=== PATIENT | male | born 1965 | race Caucasian/White ===

== ENCOUNTER 2017-06-10 10:48 | Inpatient (IN) | payer OTHER ==
[~2017-06-10] VITALS: Ht 170.2 cm; Wt 84.2 kg
[2017-06-10] MEDS ORDERED: SOD CHLORIDE 0.9% 1,000 ML IV ONE ×2 (12:30→17:00)
[2017-06-10 12:41] LABS: ABNORMAL IP MESSAGE 1; HEMATOCRIT 22.1 % (42.0-52.0); HEMOGLOBIN 7.1 g/dl (14.0-18.0); MEAN CORPUSCULAR HGB CONC 32.1 g/dl (32.0-37.0); MEAN CORPUSCULAR VOLUME 71.5 fl (82.0-101.0); NUCLEATED RED BLOOD CELLS% 0.1 /100WBC (0.0-0.0); POSITIVE DIFF @See below; RED BLOOD COUNT 3.09 10^6/ul (4.70-6.10); RED CELL DISTRIBUTION WIDTH 19.4 % (11.5-14.5); WHITE BLOOD COUNT 34.9 10^3/ul (4.8-10.8)
[2017-06-10 12:48] LABS: INR 1.49; PROTIME 18.1 Sec (12.2-14.2); PT RATIO 1.4
[2017-06-10 12:52] LABS: PARTIAL THROMBOPLASTIN TIME 42.4 Sec (25.0-35.0)
[2017-06-10] MEDS ORDERED: ALBU2.5V3 NEB (12:52)
[2017-06-10] MEDS ORDERED: ARGI1POW19 PO (12:54)
[2017-06-10] MEDS ORDERED: LORA-441 PO (12:56)
[2017-06-10] MEDS ORDERED: DEXT15DR2 BOTH EYES (12:56)
[2017-06-10] MEDS ORDERED: CEFEPIME 2GM/50 ML (PMX) 50 ML IVPB ONE (13:00)
[2017-06-10] MEDS ORDERED: WHEY227P PO (13:02)
[2017-06-10] MEDS ORDERED: DOCU-144 PO (13:03)
[2017-06-10] MEDS ORDERED: SUCR1TAB56 PO (13:03)
[2017-06-10] MEDS ORDERED: DIVA500T7 PO (13:04)
[2017-06-10] MEDS ORDERED: POLY17PO6 PO (13:06)
[2017-06-10] MEDS ORDERED: IPRA3AMP INHALATION (13:06)
[2017-06-10] MEDS ORDERED: MULT-105 PO (13:07)
[2017-06-10] MEDS ORDERED: GABA-526 PO (13:08)
[2017-06-10] MEDS ORDERED: HYDR-906 PO ×2 (13:09→13:10)
[2017-06-10] MEDS ORDERED: PANT40TA3 PO (13:11)
[2017-06-10] MEDS ORDERED: UDROBDM PO (13:12)
[2017-06-10] MEDS ORDERED: SIME80TA53 PO (13:13)
[2017-06-10] MEDS ORDERED: ACET325T33 PO (13:14)
[2017-06-10] MEDS ORDERED: ASCO-110 PO (13:15)
[2017-06-10] MEDS ORDERED: BUPR-187 PO (13:15)
--- NOTE | 2017-06-10 13:15 | RADRPT ---
PROCEDURE: XR Chest. CLINICAL INDICATION: Chest pain, shortness of breath TECHNIQUE: Single frontal view of the chest was obtained COMPARISON: None FINDINGS: A right subclavian pacemaker is present. The heart is enlarged. There is fullness in the superior mediastinum, likely exaggerated by the portable nature of the film . The study is hypoventilatory which compresses the lung parenchyma. Mild pulmonary vascular congesti on is not excluded. There is patchy left basilar atelectasis with a small left pleural effusion. The right pleural space is clear. The bones and soft tissue show no acute change. IMPRESSION: 1. Cardiomegaly. 2. Fullness in the superior mediastinum, likely exaggerated by the portable nature of the film. 3. Hypoventilatory study which compresses the lung parenchyma. Mild pulmonary vascular congestion is not excluded. 4. Patchy left basilar atelectasis with a small left pleural effusion. RPTAT:AAJJ Physician Priya Date Time Electronically viewed and signed by Physician Priya on 06/10/2017 13:14 RAFAL/
[2017-06-10 13:27] LABS: ALANINE AMINOTRANSFERASE 29 IU/L (13-69); ALBUMIN 2.1 g/dl (3.3-4.9); ALKALINE PHOSPHATASE 122 IU/L (42-121); ANION GAP 12 (8-16); ASPARTATE AMINO TRANSFERASE 49 IU/L (15-46); BILIRUBIN,INDIRECT 0.4 mg/dl (0-1.1); BILIRUBIN,TOTAL 0.4 mg/dl (0.2-1.3); BLOOD UREA NITROGEN 38 mg/dl (7-20); CALCIUM 6.8 mg/dl (8.4-10.2); CARBON DIOXIDE 27 mmol/L (21-31); CHLORIDE 86 mmol/L (97-110); CREATININE 0.99 mg/dl (0.61-1.24); GLUCOSE 102 mg/dl (70-220); SODIUM 122 mmol/L (135-144); TOTAL PROTEIN 6.3 g/dl (6.1-8.1)
[2017-06-10 13:30] LABS: POTASSIUM 2.8 mmol/L (3.5-5.1)
[2017-06-10 13:39] LABS: TROPONIN-I < 0.012 ng/ml (0.00-0.12)
[2017-06-10 13:40] LABS: LYMPHOCYTES # 1.4 10^3/ul (0.8-2.9); MONOCYTE # 1.7 10^3/ul (0.3-0.9); MONOCYTES % (M) 5 % (0-11)
[2017-06-10 13:41] LABS: PLATELET COUNT 270 10^3/UL (140-415)
[2017-06-10] MEDS ORDERED: POTASSIUM CHLORIDE 250 ML IVPB ONE (14:30)
--- NOTE | 2017-06-10 14:32 | ERA ---
ER Documentation Chief Complaint Date/Time DATE: 06/10/17 TIME: 14:28 Chief Complaint ABDOMEN MORE DISTENDED AND FIRM WITH INCREASED ALOC PER STAFF. NO TRAUMA HPI Patient is a 51-year-old male with quadriplegia who was sent to the ER from a long term due to low blood pressure and generalized weakness for 2 days. History is limited due to poor knowledge at the long term, including from the long term physician and patient's nurse. The patient states that he feels well and is unable to provide history. According to the long term physician, the patient has had recurrent urinary tract infections, and may have a chronic volvulus. Patient has been admitted multiple times to [facility] according to . ROS All systems reviewed and are negative except as per history of present illness. Medications Home Meds Reported Medications Bupropion Hcl* (Wellbutrin SR*) 100 Mg Tablet.sa, 100 MG PO DAILY, TAB.SA 06/10/17 Ascorbate Calcium (Vitamin C) 500 Mg Tablet, 500 MG PO BID, TAB 06/10/17 Acetaminophen* (Tylenol*) 325 Mg Tablet, 650 MG PO Q6H Y for PAIN 1-4/10, TAB 06/10/17 Simethicone (GAS RELIEF) 80 Mg Tab.chew, 80 MG PO QID, TAB.CHEW 06/10/17 Guaifenesin-Dextromethorphan* (Robitussin* DM) 100MG/10MG/5ML Syrup, 10 ML PO Q4H Y for COUGH, ML 06/10/17 Pantoprazole* (Protonix*) 40 Mg Tablet.dr, 40 MG PO QAM, TAB 06/10/17 Hydrocodone/Acetaminophen ([place] 5-325 Tablet) 1 Each Tablet, 1 EACH PO Q8H Y for PAIN 5-10/10, TAB 06/10/17 Hydrocodone/Acetaminophen ([place] 5-325 Tablet) 1 Each Tablet, 1 EACH PO, TAB TAKE 1/2HR PRIOR TO WOUND TX. 06/10/17 Gabapentin* (Gabapentin*) 600 Mg Tablet, 600 MG PO Q8H, #90 TAB 06/10/17 Multivitamin with Minerals (Multivitamins with Minerals) 1 Each Tablet, 1 EACH PO DAILY, TAB 06/10/17 Polyethylene Glycol* (Miralax*) 17 Gm Powd.pack, 17 GM PO DAILY, #30 PACKET 06/10/17 Ipratropium-Albuterol (Ipratropium-Albuterol) 0.5-3 Mg/3 Ml Ampul.neb, 3 ML INHALATION Q6 Y for SHORTNESS OF BREATH, #30 VIAL 06/10/17 Divalproex Sodium* (Depakote*) 500 Mg Tablet.dr, 500 MG PO BID, #60 TAB 06/10/17 Docusate Sodium* (Colace*) 100 Mg Capsule, 100 MG PO BID, #60 CAP 06/10/17 Sucralfate* (Carafate*) 1 Gm Tab, 1 GM PO Q6, TAB 06/10/17 Whey Protein Isolate (Beneprotein) 227 Gm Powder, 0 PO QID TAKE 1 SCOOP QID,MIX WITH 4 OZ BEVERAGE OR SOFT FOOD 06/10/17 Lorazepam* (Ativan*) 0.5 Mg Tablet, 0.5 MG PO Q8 Y for ANXIETY, #60 TAB 06/10/17 Dextran/Hypromellose/Glycerin (Artificial Tears Drops) 15 Ml Drops, 1 DROP BOTH EYES Q3H Y for DRY EYES, EA 06/10/17 Arginine/Ascorbate Sod/Raya AC (Arginaid Powder) 1 Each Powd.pack, 1 EACH PO BID 06/10/17 Albuterol Sulfate* (Albuterol Sulfate* Neb) 0.083%-3 Ml Neb, 2.5 MG NEB Q6H Y for WHEEZING AND SOB, #30 VIAL 06/10/17 Allergies Allergies: Coded Allergies: No Known Allergy (Unverified , 06/10/17) PMhx/Soc Past medical history: Quadriplegia due to polio, CHF, pacemaker, suprapubic catheter, possible chronic volvulus, depression Past surgical history: Unknown Social history: Lives in long term Hx Miscellaneous Medical Probl: Yes (ANEMIA , HTN. BIPOLAR . PRESSURE ULCERS. ) Smoking Status: Unknown if ever smoked FmHx Cannot obtain Physical Exam Vitals Vital Signs Date Time Temp Pulse Resp B/P Pulse Ox O2 Delivery O2 Flow Rate FiO2 06/10/17 15:32 98.6 81 20 99/52 Nasal Cannula 4.0 06/10/17 13:42 88 20 134/59 Nasal Cannula 4.0 06/10/17 13:17 Nasal Cannula 3 06/10/17 12:10 98.5 88 22 78/54 99 Physical Exam Const: Awake, lethargic, poorly communicative Head: Atraumatic Eyes: Normal Conjunctiva, No pallor, no icterus ENT: Normal External Ears, Nose and Mouth. Dry mucous membranes Neck: Full range of motion..~ No meningismus. No JVD Resp: Clear to auscultation bilaterally, Diminished breath sounds at left base, no rales, no wheezes Cardio: Regular rate and rhythm, no murmurs Abd: Firm, severely distended, no guarding or rebound Skin: No petechiae or rashes Back: No midline or flank tenderness. Stage IV decubitus ulcer over sacrum without surrounding erythema, foul smell, or discharge. Ext: No cyanosis, 1+ pitting edema bilateral shins Neur: Awake and alert, Contractures of 4 extremities Psych: Cannot assess due to medical condition Result Diagram: 06/10/17 1150 06/10/17 1150 Results 24 hrs Laboratory Tests Test 06/10/17 11:50 06/10/17 14:58 White Blood Count 34.910^3/ul Red Blood Count 3.0910^6/ul Hemoglobin 7.1g/dl Hematocrit 22.1% Mean Corpuscular Volume 71.5fl Mean Corpuscular Hemoglobin 23.0pg Mean Corpuscular Hemoglobin Concent 32.1g/dl Red Cell Distribution Width 19.4% Platelet Count 87158^3/UL Mean Platelet Volume 9.0fl Neutrophils % % Segmented Neutrophils % (Manual) 82% Band Neutrophils % (Manual) 9% Lymphocytes % % Lymphocytes % (Manual) 4% Monocytes % % Monocytes % (Manual) 5% Eosinophils % % Basophils % % Nucleated Red Blood Cells % 0.1/100WBC Neutrophils # (Manual) 29.710^3/ul Band Neutrophils # 3.110^3/ul Absolute Lymphocytes (Manual) 1.310^3/ul Lymphocytes # 1.410^3/ul Monocytes # 1.710^3/ul Absolute Monocytes (Manual) 1.710^3/ul Eosinophils # 10^3/ul Basophils # 10^3/ul Nucleated Red Blood Cells # 10^3/ul Prothrombin Time 18.1Sec Prothrombin Time Ratio 1.4 INR International Normalized Ratio 1.49 Activated Partial Thromboplast Time 42.4Sec Sodium Level 122mmol/L Potassium Level 2.8mmol/L Chloride Level 86mmol/L Carbon Dioxide Level 27mmol/L Anion Gap 12 Blood Urea Nitrogen 38mg/dl Creatinine 0.99mg/dl Glucose Level 102mg/dl Lactic Acid Level 2.6mmol/L Calcium Level 6.8mg/dl Total Bilirubin 0.4mg/dl Direct Bilirubin 0.00mg/dl Indirect Bilirubin 0.4mg/dl Aspartate Amino Transf (AST/SGOT) 49IU/L Alanine Aminotransferase (ALT/SGPT) 29IU/L Alkaline Phosphatase 122IU/L Ammonia 39umol/l Troponin I < 0.012ng/ml Total Protein 6.3g/dl Albumin 2.1g/dl Globulin 4.20g/dl Albumin/Globulin Ratio 0.50 Urine Color YELLOW Urine Clarity TURBID Urine pH 5.0 Urine Specific [place] 1.015 Urine Ketones NEGATIVEmg/dL Urine Nitrite NEGATIVEmg/dL Urine Bilirubin 1+mg/dL Urine Urobilinogen 2+mg/dL Urine Leukocyte Esterase 2+Rdaha/ul Urine Microscopic RBC 67/HPF Urine Microscopic WBC > 182/HPF Urine Bacteria MANY/HPF Urine Mucus MODERATE/HPF Urine Hemoglobin 2+mg/dL Urine Glucose NEGATIVEmg/dL Urine Total Protein 2+mg/dl Current Medications Medications (Trade) Dose Ordered Sig/Vern Route PRN Reason Start Time Stop Time Status Last Admin Dose Admin Sodium Chloride 1,000 ml @ 1,000 mls/hr Q1H ONCE IV 06/10/17 12:30 06/10/17 13:29 DC 06/10/17 13:09 Cefepime HCl 50 ml @ 100 mls/hr ONCE ONCE IVPB 06/10/17 13:00 06/10/17 13:29 DC 06/10/17 13:00 Potassium Chloride (KCl 40 MEQ/250 ML NS) 250 ml @ 62.5 mls/hr ONCE ONCE IVPB 06/10/17 14:30 06/10/17 18:29 06/10/17 16:15 Procedures/MDM EKG read by me: Time 1059, rate 92 Rhythm: Normal sinus [place]: Normal Intervals: Incomplete right bundle branch block ST-T waves: no ischemic changes Ectopy: No Q-waves: No Impression: No evidence of ischemia or arrhythmia MDM: Patient is a 51-year-old male sent from long term for low blood pressure and generalized weakness for 2 days. The patient has history of recurrent UTIs associated with an indwelling suprapubic catheter. In the ER, he is found to have impressive leukocytosis, elevated lactic acid, and evidence of UTI. He was hypotensive, but his blood pressure normalized with IV fluids. He also was found to have severe hyponatremia and hypokalemia. He was given IV potassium repletion. There is no evidence of focal neurologic deficit. His ammonia was mildly elevated. He had a distended abdomen, which the long term reported is chronic, but they did not know the cause of his abdominal distention. A CT scan demonstrated possible rectal stricture. He will need a nonemergent surgical consult for possible colonic obstruction versus ileus. He was also found to have a stage IV decubitus ulcer with signs of possible osteomyelitis on CT scan. Septic workup was initiated, and the patient was given IV fluids and broad-spectrum antibiotics. The patient was initially given judicious IV fluids due to concern for underlying CHF and mild hypoxemia. He tolerated initial bolus well, and will be given additional fluids at a slow rate to avoid volume overload. This was a deviation from sepsis protocol based upon my assessment of risks and benefits. Cultures were sent. He was found to be anemic. There is no report of dark stools, and no accessible baseline hemoglobin. A type and screen was sent. The patient will be admitted to a monitored bed by Dr. Hughes. Critical Care Time: 35 minutes Treatments/Evaluations: Close monitoring and treatment of unstable vital signs, cardiorespiratory, and neurologic status, while maintaining tight balance of fluid, respiratory, and cardiac interventions. This time includes discussing the case with the patient and the patient's family. This time does not include all procedures stated elsewhere in this record. This time also includes reviewing old records, labs and radiological studies. This time includes examining and re-examining the patient. Additionally, this time also includes arranging care with admitting and consulting physicians. Significant time was spent speaking with 2 staff members at the long term and the physician at the long term due to poor availability of patient's history and medical conditions. Departure Diagnosis: Primary Impression: Hypotension Qualified Code: I95.9 - Hypotension, unspecified hypotension type Additional Impressions: Sepsis Qualified Code: A41.9 - Sepsis, due to unspecified organism Urinary tract infection Qualified Code: T83.511A - Urinary tract infection associated with indwelling urethral catheter, initial encounter Chronic osteomyelitis of sacrum Hyponatremia Hypokalemia Anemia Qualified Code: D64.9 - Anemia, unspecified type Rectal stricture Quadriplegia Condition: Serious TEQUILA SINGH MD Jun 10, 2017 14:32
[2017-06-10 15:27] LABS: ADD UMIC YES; UR ASCORBIC ACID 40 mg/dL (NEGATIVE); UR BACTERIA MANY /HPF (NONE SEEN); UR BILIRUBIN (Dip) 1+ mg/dL (NEGATIVE); UR BLOOD (Dip) 2+ mg/dL (NEGATIVE); UR CLARITY TURBID (CLEAR); UR COLOR YELLOW (YELLOW); UR GLUCOSE (Dip) NEGATIVE (NEGATIVE); UR KETONES (Dip) NEGATIVE (NEGATIVE); UR LEUKOCYTE ESTERASE (Dip) 2+ Leu/ul (NEGATIVE); UR MUCUS MODERATE /HPF (NONE SEEN); UR NITRITE (Dip) NEGATIVE (NEGATIVE); UR RBC 67 /HPF (0-5); UR SPECIFIC GRAVITY (Dip) 1.015 (1.003-1.030); UR TOTAL PROTEIN (Dip) 2+ mg/dl (NEGATIVE); UR UROBILINOGEN (Dip) 2+ mg/dL (NEGATIVE); UR WBC CLUMPS RARE /HPF (NONE SEEN)
--- NOTE | 2017-06-10 16:27 | RADRPT ---
PROCEDURE: CT abdomen and pelvis without contrast. CLINICAL INDICATION: Abdominal distension and pain TECHNIQUE: CT scan of the abdomen and pelvis without contrast was performed. Sagittal and coronal reformatted images were obtained from the axial source images. One or more of the following dose re duction techniques were used: Automated exposure control, adjustment of the mA and/or kV according t o patient size, use of iterative reconstruction technique. CTDI = 20.58 mGy; DLP = 1232.01 mGy-cm COMPARISON: None available. FINDINGS: Visualized lower thorax: Dependent subsegmental atelectasis greater on the left is present. Visual ized heart is mildly enlarged with a cardiac pacemaker noted. There is no evidence for pleural effu jacqui. Liver, gallbladder, pancreas and spleen: The liver is normal and size, contour and attenuation. Th ere is no evidence for a liver mass or ductal dilatation. The gallbladder is contracted around calc ified gallstones. No common bile duct abnormality is demonstrated. The pancreas is unremarkable. The spleen is top normal in size. Adrenal glands and genitourinary system: The adrenal glands are normal bilaterally. Nonspecific str anding of the fat surrounding the right kidney is identified without evidence of calculus or hydrone phrosis. Within the left kidney there are 4 calculi ranging in size from 1 mm up to 4 mm. A tiny h yperdense cyst within the left renal cortex is present likely proteinaceous or hemorrhagic material. There is no evidence of hydronephrosis. The ureters are unremarkable. A suprapubic catheter is in the anterior aspect of the urinary bladder and to the left of midline, the urinary bladder contract ed and difficult to evaluate. The prostate gland is not visualized, possibly atrophic. The visuali zed scrotum shows small hydroceles. Gastrointestinal system: The most striking finding is marked gaseous distension of the colon with a severe amount of fecal debris in the sigmoid segment and rectum, the diameter of the sigmoid colon e stimated at 15 cm. The possibility of a stricture in the rectum is difficult to exclude. The stoma ch is collapsed and there is no evidence of small bowel obstruction or ileus. No perienteric inflam mation is seen. The appendix is normal Peritoneum, retroperitoneum, lymph nodes and vessels: The abdominal aorta is normal in caliber. The re is mild aortic atherosclerotic calcification. The inferior vena cava is unremarkable. There is no evidence for adenopathy or mass. There is no ascites. No pneumoperitoneum is present Osseous structures and musculoskeletal findings: Severe atrophy of the pelvic and paraspinal muscle s is most consistent with a longstanding paralysis. There are decubitus ulcer is overlying the post erior right hip with chronic-appearing bony destruction of the right proximal femur likely chronic o steomyelitis with a right hip joint effusion. Generalized osteoporosis is present. There is severe narrowing of the left hip joint and dystrophic calcifications anterior to the left femoral head. RPTAT:HJJR IMPRESSION: 1. Severe distal colonic and rectal distension with gas and distal fecal debris unable to exclude a a rectal stricture. A severe a colonic ileus is a possibility given the musculoskeletal changes of p resumably a longstanding paralysis. 2. Urinary bladder is decompressed by suprapubic catheter is to the left of midline, displaced by t he markedly distended distal colon. 3. No evidence of appendicitis, bowel obstruction or ileus. 4. Incidental cholelithiasis and the contracted gallbladder. 5. Nonobstructing left intrarenal calculi and a left renal cortex proteinaceous or hemorrhagic cyst are additional incidental findings requiring no further follow-up. 6. Mild atherosclerotic calcification of the abdominal aorta. 7. Severe atrophy of the pelvic and visualized 5 musculature with probable chronic osteomyelitis of the right proximal femur and hip related to decubitus ulcer. Physician Gonzalo Date Time Electronically viewed and signed by Physician Gonzalo on 06/10/2017 16:27 JR/
[2017-06-10] MEDS ORDERED: PANTOPRAZOLE 40 MG INJ IV ONE (17:00)
[2017-06-10] MEDS ORDERED: NORepinephrine 8MG/250 ML (PMX 0 ML ONE (18:31)
--- NOTE | 2017-06-10 18:46 | EN ---
Date/Time of Note Date/Time of Note DATE: 06/10/17 TIME: 18:44 ER Progress Note I was notified by the charge nurse that this patient was hypotensive. I did not initially evaluate this patient however I was told this patient has had a blood pressure with a systolic no greater than 65. They try fluid boluses 2 L of IV fluid with no resolution of his hypotension. When I evaluated this patient he had a blood pressure of 63/42. He was not tachycardic. The patient had an extreme abdominal distention and reviewing his lab andUrinalysis this patient does have UTI with sepsis and refractory hypotension to fluids. I did place a central line in the right internal jugular vein. Please see central line. The patient will be placed in the intensive care unit and was started on Levophed. Central Line Placement by me: Patient consented, sterilely draped, full prep, gown, glove, mask, time out performed. Anesthesia: 1% lidocaine locally Location: Right internal jugular vein Device: Multiple lumen Technique: Seldinger technique. Secured with suture. Results: Venous return from all ports with easy saline flush. No complications. Guide wire retrieved and disposed of. [ED Ultrasound: Central line placed by me using concurrent ultrasound guidance. Real time image archived in the medical record confirms vascular anatomy. [Chest X-ray 1V Interpreted by me: Central line in SVC, Normal soft tissue, No evidence of pneumothorax.] JOSEPH SOSA DO Jun 10, 2017 18:46
--- NOTE | 2017-06-10 18:57 | RADRPT ---
PROCEDURE: XR Chest. CLINICAL INDICATION: Respiratory distress. TECHNIQUE: AP view of the chest was performed. COMPARISON: June 10, 2017 FINDINGS: There is a new, right central venous catheter with the tip in the superior vena cava. This line is in good positioning and ready for use. There is no pneumothorax. The heart size is stable. There is a stable right subclavian dual-chambe r pacer. No pleural effusion or findings of acute fluid overload. The osseous structures are intac t. IMPRESSION: 1. Right central venous catheter in good positioning and ready for use. No pneumothorax. No findi ngs of acute fluid overload. Overall, no significant interval change. RPTAT: QQ. .Jaci Rodriguez MD, MD Date Time Electronically viewed and signed by .Jaci Rodriguez MD, on 06/10/2017 18:57 .F/
[2017-06-10] MEDS ORDERED: ACETAMINOPHEN 325 MG TAB PO ONE (20:30)
[2017-06-10] MEDS ORDERED: NORepinephrine 8MG/250 ML (PMX 250 ML IV SCH (21:00)
[2017-06-10 22:13] VITALS: TEMP 100.1
[2017-06-10 22:45] VITALS: BP 169/142; PULSE 118; RESP 29
[2017-06-10 23:00] VITALS: BP 108/70; PULSE 112; RESP 28
[2017-06-10 23:15] VITALS: BP 99/58; PULSE 109; RESP 31
[2017-06-10 23:30] VITALS: BP 98/56; PULSE 111; RESP 29
[2017-06-10 23:45] VITALS: BP 102/59; PULSE 111; RESP 30
[2017-06-10 23:52] LABS: AADO2 Arterial 6.9 mmHg (7.0-24.0); Allen Test ACCEPTAB; Arterial Base Excess -0.9 mmol/L (-3.0-3); Arterial COHb 0.5 % (0.0-3.0); Arterial Fraction of Oxyhgb 97.5 % (93.0-99.0); Arterial HCO3 24.6 mmol/L (22.0-26.0); Arterial MetHb 0.4 % (0.0-1.5); MODE NASAL CANNULA
[2017-06-11] VITALS (91 sets, daily range): BP systolic 74–133; BP diastolic 42–104; PULSE 83–110; RESP 13–37
[2017-06-11] MEDS ORDERED: VANCOMYCIN IV PER PHARMACY XX SCH (00:30)
[2017-06-11] MEDS ORDERED: SOD CHLORIDE 0.9% 1,000 ML IV SCH ×2 (00:30→04:30)
[2017-06-11 00:57] LABS: ABNORMAL IP MESSAGE 1; BASOPHILS % 0.1 % (0.0-2.0); HEMATOCRIT 24.1 % (42.0-52.0); HEMOGLOBIN 7.5 g/dl (14.0-18.0); LYMPHOCYTES # 1.3 10^3/ul (0.8-2.9); LYMPHOCYTES % 3.9 % (15.0-51.0); MEAN CORPUSCULAR HEMOGLOBIN 22.2 pg (29.0-33.0); MEAN CORPUSCULAR HGB CONC 31.1 g/dl (32.0-37.0); MEAN CORPUSCULAR VOLUME 71.3 fl (82.0-101.0); MEAN PLATELET VOLUME 9.1 fl (7.4-10.4); MONOCYTE # 1.5 10^3/ul (0.3-0.9); MONOCYTES % 4.4 % (0.0-11.0); NEUTROPHILS % 88.5 % (39.0-77.0); NUCLEATED RED BLOOD CELLS% 0.1 /100WBC (0.0-0.0); PLATELET COUNT 288 10^3/UL (140-415); POSITIVE DIFF @See below; RED BLOOD COUNT 3.38 10^6/ul (4.70-6.10); RED CELL DISTRIBUTION WIDTH 20.1 % (11.5-14.5); WHITE BLOOD COUNT 34.7 10^3/ul (4.8-10.8)
[2017-06-11 01:23] LABS: ALBUMIN 2.1 g/dl (3.3-4.9); ALBUMIN/GLOBULIN RATIO 0.48; BILIRUBIN,INDIRECT 0.2 mg/dl (0-1.1); BILIRUBIN,TOTAL 0.2 mg/dl (0.2-1.3); CREATININE 0.62 mg/dl (0.61-1.24); MAGNESIUM 1.5 mg/dl (1.7-2.5); PHOSPHORUS 3.9 mg/dl (2.5-4.9); TOTAL PROTEIN 6.4 g/dl (6.1-8.1)
[2017-06-11] MEDS ORDERED: VANCOMYCIN 2 GM in SOD CHLORIDE 0.9% 500 ML IVPB SCH (02:00)
[2017-06-11 02:44] LABS: POTASSIUM 2.7 mmol/L (3.5-5.1)
[2017-06-11] MEDS ORDERED: POTASSIUM CHLORIDE 250 ML IVPB ONE (03:30)
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
[2017-06-11 05:30] LABS: ABNORMAL IP MESSAGE 1; BASOPHILS % 0.1 % (0.0-2.0); EOSINOPHILS % 0.1 % (0.0-7.0); HEMATOCRIT 23.2 % (42.0-52.0); HEMOGLOBIN 7.1 g/dl (14.0-18.0); LYMPHOCYTES # 1.7 10^3/ul (0.8-2.9); LYMPHOCYTES % 5.1 % (15.0-51.0); MEAN CORPUSCULAR HGB CONC 30.6 g/dl (32.0-37.0); MEAN PLATELET VOLUME 9.3 fl (7.4-10.4); MONOCYTE # 1.6 10^3/ul (0.3-0.9); MONOCYTES % 4.8 % (0.0-11.0); NEUTROPHILS % 86.7 % (39.0-77.0); NUCLEATED RED BLOOD CELLS% 0.1 /100WBC (0.0-0.0); PLATELET COUNT 296 10^3/UL (140-415); POSITIVE DIFF @See below; RED BLOOD COUNT 3.22 10^6/ul (4.70-6.10); RED CELL DISTRIBUTION WIDTH 20.1 % (11.5-14.5); WHITE BLOOD COUNT 33.1 10^3/ul (4.8-10.8)
[2017-06-11] MEDS ORDERED: PENDING SANTYL ORDER FOR WOUND CARE XX PRN (06:00)
[2017-06-11 06:16] LABS: IRON < 10 ug/dl (35-150)
[2017-06-11 06:24] LABS: TOTAL IRON BINDING CAPACITY 166 ug/dl (241-421)
[2017-06-11] MEDS: PIPER-TAZO 3.375 GM IV (PMX) 100 ML IVPB SCH ×3 (06:55→18:06)
[2017-06-11] MEDS ORDERED: POTASSIUM CHLORIDE 50 ML IVPB SCH (07:30)
[2017-06-11 12:10] LABS: ALBUMIN/GLOBULIN RATIO 0.48; BILIRUBIN,DIRECT 0.3 mg/dl (0.00-0.20); BILIRUBIN,INDIRECT 0.6 mg/dl (0-1.1); BILIRUBIN,TOTAL 0.9 mg/dl (0.2-1.3); CALCIUM 6.8 mg/dl (8.4-10.2); CREATININE 0.48 mg/dl (0.61-1.24); TOTAL PROTEIN 6.1 g/dl (6.1-8.1)
[2017-06-11] MEDS ORDERED: MAGNESIUM SULFATE 2 GM/50 ML 50 ML IVPB ONE (13:30)
[2017-06-11] MEDS: POTASSIUM CHLORIDE 40 MEQ in SOD CHLORIDE 0.9% 1,000 ML IV SCH ×2 (14:55→23:09)
[2017-06-11] MEDS: VANCOMYCIN 1.25 GM in SOD CHLORIDE 0.9% 250 ML IVPB SCH (14:55)
[2017-06-11] MEDS ORDERED: CALCIUM GLUCONATE 10% 2 GM in SOD CHLORIDE 0.9% 100 ML IVPB ONE (15:00)
[2017-06-11 21:28] LABS: ALBUMIN/GLOBULIN RATIO 0.48; BILIRUBIN,DIRECT 0.7 mg/dl (0.00-0.20); BILIRUBIN,INDIRECT 0.6 mg/dl (0-1.1); BILIRUBIN,TOTAL 1.3 mg/dl (0.2-1.3); CALCIUM 7.4 mg/dl (8.4-10.2); CREATININE 0.45 mg/dl (0.61-1.24); MAGNESIUM 1.9 mg/dl (1.7-2.5); PHOSPHORUS 2.1 mg/dl (2.5-4.9); TOTAL PROTEIN 6.1 g/dl (6.1-8.1)
[2017-06-11 21:31] LABS: POTASSIUM 2.6 mmol/L (3.5-5.1)
[2017-06-11] MEDS: POTASSIUM CHLORIDE 50 ML IVPB SCH (23:09)
[2017-06-12] VITALS (95 sets, daily range): BP systolic 75–134; BP diastolic 29–118; PULSE 73–105; RESP 15–39
[2017-06-12] MEDS: PIPER-TAZO 3.375 GM IV (PMX) 100 ML IVPB SCH ×4 (00:35→18:38)
[2017-06-12] MEDS: POTASSIUM CHLORIDE 50 ML IVPB SCH ×3 (00:36→23:34)
[2017-06-12] MEDS: VANCOMYCIN 1.25 GM in SOD CHLORIDE 0.9% 250 ML IVPB SCH (03:10)
[2017-06-12 06:34] LABS: CREATININE 0.46 mg/dl (0.61-1.24)
[2017-06-12] MEDS: POTASSIUM CHLORIDE 40 MEQ in SOD CHLORIDE 0.9% 1,000 ML IV SCH ×2 (06:49→14:49)
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
[2017-06-12 13:39] LABS: HEMATOCRIT 28.3 % (42.0-52.0); HEMOGLOBIN 9.1 g/dl (14.0-18.0); MEAN CORPUSCULAR HGB CONC 32.2 g/dl (32.0-37.0); MEAN CORPUSCULAR VOLUME 74.7 fl (82.0-101.0); MEAN PLATELET VOLUME 8.9 fl (7.4-10.4); PLATELET COUNT 241 10^3/UL (140-415); POSITIVE DIFF @See below; RED BLOOD COUNT 3.79 10^6/ul (4.70-6.10); RED CELL DISTRIBUTION WIDTH 20.2 % (11.5-14.5); WHITE BLOOD COUNT 18.3 10^3/ul (4.8-10.8)
[2017-06-12 14:18] LABS: ALBUMIN 1.9 g/dl (3.3-4.9); ALBUMIN/GLOBULIN RATIO 0.5; BILIRUBIN,INDIRECT 0.2 mg/dl (0-1.1); BILIRUBIN,TOTAL 0.2 mg/dl (0.2-1.3); CALCIUM 6.9 mg/dl (8.4-10.2); MAGNESIUM 1.3 mg/dl (1.7-2.5); PHOSPHORUS 1.9 mg/dl (2.5-4.9); TOTAL PROTEIN 5.7 g/dl (6.1-8.1)
[2017-06-12 14:25] LABS: POTASSIUM 2.9 mmol/L (3.5-5.1)
[2017-06-12 14:50] LABS: ANISOCYTOSIS 1+ (0-0); HYPOCHROMASIA 1+ (0-0); METAMYELOCYTES %M 1 % (0-0); MICROCYTOSIS 1+ (0-0); MONOCYTES % (M) 8 % (0-11); MYELOCYTES % (M) 3 % (0-0); OVALOCYTES 1+ (0-0); PLATELET ESTIMATE NORMAL; POIKILOCYTOSIS 1+ (0-0); POLYCHROMASIA 1+ (0-0); PROMYELOCYTES #M 0 10^3/ul (0-0); PROMYELOCYTES % (M) 2 % (0-0)
[2017-06-12 15:33] LABS: CREATININE 0.42 mg/dl (0.61-1.24)
[2017-06-12] MEDS: VANCOMYCIN 1 GM in NS 250 ML IVPB SCH (15:52)
[2017-06-12] MEDS ORDERED: FUROSEMIDE 20 MG INJ IV ONE (16:00)
[2017-06-12] MEDS ORDERED: MAGNESIUM SULFATE 2 GM/50 ML 50 ML IVPB ONE (16:00)
[2017-06-12] MEDS ORDERED: POTASSIUM PHOSPHATE 30 MM in SOD CHLORIDE 0.9% 250 ML IVPB ONE (16:00)
[2017-06-12] MEDS: ALBUTEROL 0.083% (NEB) 2.5 MG/3 ML AMP HHN PRN (17:16)
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
[2017-06-12] MEDS: ALBUTEROL 0.083% (NEB) 2.5 MG/3 ML AMP HHN SCH (19:38)
[2017-06-12] MEDS ORDERED: POTASSIUM CHLORIDE 250 ML IVPB ONE (20:00)
[2017-06-13] VITALS (65 sets, daily range): BP systolic 82–134; BP diastolic 44–107; PULSE 82–105; RESP 14–37
[2017-06-13] MEDS: PIPER-TAZO 3.375 GM IV (PMX) 100 ML IVPB SCH ×4 (01:08→17:28)
[2017-06-13] MEDS: VANCOMYCIN 1 GM in NS 250 ML IVPB SCH (03:30)
[2017-06-13 05:27] LABS: ABNORMAL IP MESSAGE 1; BASOPHIL # 0.1 10^3/ul (0.0-0.1); BASOPHILS % 0.4 % (0.0-2.0); EOSINOPHILS # 0.1 10^3/ul (0.0-0.5); EOSINOPHILS % 0.8 % (0.0-7.0); HEMATOCRIT 31.7 % (42.0-52.0); HEMOGLOBIN 10.2 g/dl (14.0-18.0); LYMPHOCYTES # 2.9 10^3/ul (0.8-2.9); LYMPHOCYTES % 18.3 % (15.0-51.0); MEAN CORPUSCULAR HEMOGLOBIN 24.4 pg (29.0-33.0); MEAN CORPUSCULAR HGB CONC 32.2 g/dl (32.0-37.0); MEAN CORPUSCULAR VOLUME 75.8 fl (82.0-101.0); MEAN PLATELET VOLUME 9.4 fl (7.4-10.4); MONOCYTE # 1.3 10^3/ul (0.3-0.9); MONOCYTES % 8.2 % (0.0-11.0); NEUTROPHILS % 66.1 % (39.0-77.0); PLATELET COUNT 259 10^3/UL (140-415); POSITIVE DIFF @See below; RED BLOOD COUNT 4.18 10^6/ul (4.70-6.10); RED CELL DISTRIBUTION WIDTH 21.6 % (11.5-14.5); WHITE BLOOD COUNT 15.7 10^3/ul (4.8-10.8)
[2017-06-13] MEDS: POTASSIUM CHLORIDE 40 MEQ in SOD CHLORIDE 0.9% 1,000 ML IV SCH ×2 (05:27→13:10)
[2017-06-13 05:50] LABS: ALBUMIN/GLOBULIN RATIO 0.48; BILIRUBIN,DIRECT 0.1 mg/dl (0.00-0.20); BILIRUBIN,INDIRECT 0.5 mg/dl (0-1.1); BILIRUBIN,TOTAL 0.6 mg/dl (0.2-1.3); CALCIUM 6.6 mg/dl (8.4-10.2); CREATININE 0.39 mg/dl (0.61-1.24); POTASSIUM 3.8 mmol/L (3.5-5.1); TOTAL PROTEIN 6.1 g/dl (6.1-8.1)
[2017-06-13] MEDS: ALBUTEROL 0.083% (NEB) 2.5 MG/3 ML AMP HHN SCH ×2 (07:55→14:31)
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
[2017-06-13] MEDS: PANTOPRAZOLE 40 MG INJ IV SCH (10:40)
[2017-06-13] MEDS ORDERED: CALCIUM GLUCONATE 10% 2 GM in SOD CHLORIDE 0.9% 100 ML IVPB SCH (11:00)
[2017-06-13 11:41] LABS: IRON 16 ug/dl (35-150)
[2017-06-13 11:50] LABS: TOTAL IRON BINDING CAPACITY 175 ug/dl (241-421)
[2017-06-13 17:57] LABS: PATH REVIEW CH
[2017-06-13] MEDS: ALBUTEROL 0.083% (NEB) 2.5 MG/3 ML AMP HHN PRN (20:11)
[2017-06-13] MEDS: POLYETHYLENE GLYCOL 17 GM PACKET PO SCH (20:22)
[2017-06-13] MEDS: SOD FERRIC GLUC COMPLX 125 MG in SOD CHLORIDE 0.9% 100 ML IVPB SCH (20:22)
[2017-06-14] VITALS (13 sets, daily range): BP systolic 105–134; BP diastolic 55–85; PULSE 91–102; RESP 18–19
[2017-06-14] MEDS: PIPER-TAZO 3.375 GM IV (PMX) 100 ML IVPB SCH ×4 (00:52→17:31)
[2017-06-14] MEDS: PANTOPRAZOLE 40 MG INJ IV SCH (06:28)
[2017-06-14] MEDS: POTASSIUM CHLORIDE 40 MEQ in SOD CHLORIDE 0.9% 1,000 ML IV SCH ×2 (06:28→17:32)
[2017-06-14] MEDS: POLYETHYLENE GLYCOL 17 GM PACKET PO SCH (08:45)
[2017-06-14 10:16] LABS: ABNORMAL IP MESSAGE 1; BASOPHIL # 0.1 10^3/ul (0.0-0.1); BASOPHILS % 0.5 % (0.0-2.0); EOSINOPHILS # 0.1 10^3/ul (0.0-0.5); EOSINOPHILS % 0.5 % (0.0-7.0); HEMATOCRIT 30.1 % (42.0-52.0); HEMOGLOBIN 9.4 g/dl (14.0-18.0); LYMPHOCYTES # 2.8 10^3/ul (0.8-2.9); LYMPHOCYTES % 16.2 % (15.0-51.0); MEAN CORPUSCULAR HEMOGLOBIN 24.4 pg (29.0-33.0); MEAN CORPUSCULAR HGB CONC 31.2 g/dl (32.0-37.0); MEAN CORPUSCULAR VOLUME 78.2 fl (82.0-101.0); MEAN PLATELET VOLUME 9.2 fl (7.4-10.4); MONOCYTE # 1.1 10^3/ul (0.3-0.9); MONOCYTES % 6.6 % (0.0-11.0); NEUTROPHILS % 72.1 % (39.0-77.0); PLATELET COUNT 239 10^3/UL (140-415); POSITIVE DIFF @See below; RED BLOOD COUNT 3.85 10^6/ul (4.70-6.10); RED CELL DISTRIBUTION WIDTH 22.5 % (11.5-14.5); WHITE BLOOD COUNT 17.2 10^3/ul (4.8-10.8)
[2017-06-14 10:36] LABS: ALBUMIN 2.1 g/dl (3.3-4.9); ALBUMIN/GLOBULIN RATIO 0.51; BILIRUBIN,INDIRECT 0.4 mg/dl (0-1.1); BILIRUBIN,TOTAL 0.4 mg/dl (0.2-1.3); CALCIUM 6.7 mg/dl (8.4-10.2); CREATININE 0.44 mg/dl (0.61-1.24); POTASSIUM 3.8 mmol/L (3.5-5.1); TOTAL PROTEIN 6.2 g/dl (6.1-8.1)
[2017-06-14 11:39] LABS: PHOSPHORUS 2.9 mg/dl (2.5-4.9)
[2017-06-14] MEDS ORDERED: MAGNESIUM SULFATE 4 GM/100 ML 100 ML IVPB ONE (12:30)
[2017-06-14] MEDS ORDERED: MAGNESIUM SULFATE 2 GM/50 ML 50 ML IVPB ONE ×2 (12:30)
[2017-06-14] MEDS ORDERED: MAGNESIUM SULFATE IV SCH (14:00)
[2017-06-14] MEDS ORDERED: SOD CHLORIDE 0.9% IV SCH (14:00)
[2017-06-14] MEDS: SOD FERRIC GLUC COMPLX 125 MG in SOD CHLORIDE 0.9% 100 ML IVPB SCH (18:33)
[2017-06-14] MEDS: SODIUM HYPOCHLORITE 0.125% 473 ML BTL IRR SCH (21:06)
[2017-06-14] MEDS: NYSTATIN 30 GM POWDER BTL TOP SCH (21:06)
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
[2017-06-15] VITALS (9 sets, daily range): BP systolic 122–126; BP diastolic 75–87; PULSE 89–101; RESP 18–20
[2017-06-15] MEDS: PIPER-TAZO 3.375 GM IV (PMX) 100 ML IVPB SCH ×4 (06:19→18:23)
[2017-06-15] MEDS: PANTOPRAZOLE (EC) 40 MG TAB PO SCH (06:19)
[2017-06-15 07:41] LABS: ABNORMAL IP MESSAGE 1; BASOPHIL # 0.1 10^3/ul (0.0-0.1); BASOPHILS % 0.6 % (0.0-2.0); EOSINOPHILS # 0.1 10^3/ul (0.0-0.5); EOSINOPHILS % 0.9 % (0.0-7.0); HEMATOCRIT 29.2 % (42.0-52.0); HEMOGLOBIN 9.4 g/dl (14.0-18.0); LYMPHOCYTES # 3.1 10^3/ul (0.8-2.9); LYMPHOCYTES % 18.8 % (15.0-51.0); MEAN CORPUSCULAR HEMOGLOBIN 25.6 pg (29.0-33.0); MEAN CORPUSCULAR HGB CONC 32.2 g/dl (32.0-37.0); MEAN CORPUSCULAR VOLUME 79.6 fl (82.0-101.0); MEAN PLATELET VOLUME 9.2 fl (7.4-10.4); MONOCYTE # 1.1 10^3/ul (0.3-0.9); MONOCYTES % 6.5 % (0.0-11.0); NEUTROPHILS % 68.8 % (39.0-77.0); PLATELET COUNT 249 10^3/UL (140-415); POSITIVE DIFF @See below; RED BLOOD COUNT 3.67 10^6/ul (4.70-6.10); RED CELL DISTRIBUTION WIDTH 22.8 % (11.5-14.5); WHITE BLOOD COUNT 16.3 10^3/ul (4.8-10.8)
[2017-06-15 08:12] LABS: CALCIUM 6.6 mg/dl (8.4-10.2); CREATININE 0.39 mg/dl (0.61-1.24); POTASSIUM 3.6 mmol/L (3.5-5.1)
[2017-06-15] MEDS: POTASSIUM CHLORIDE 40 MEQ in SOD CHLORIDE 0.9% 1,000 ML IV SCH ×2 (08:48→22:26)
[2017-06-15] MEDS: POLYETHYLENE GLYCOL 17 GM PACKET PO SCH (09:00)
[2017-06-15] MEDS: NYSTATIN 30 GM POWDER BTL TOP SCH ×2 (09:00→21:00)
[2017-06-15] MEDS: SODIUM HYPOCHLORITE 0.125% 473 ML BTL IRR SCH ×2 (09:00→21:00)
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
[2017-06-15] MEDS ORDERED: VANCOMYCIN IV PER PHARMACY XX SCH (10:00)
[2017-06-15] MEDS ORDERED: VANCOMYCIN 1.75 GM in SOD CHLORIDE 0.9% 500 ML IVPB SCH (11:30)
[2017-06-15] MEDS: FLUCONAZOLE 200 MG/NS (PMX) 100 ML IVPB SCH (11:55)
--- NOTE | 2017-06-15 16:56 | CONS ---
Date/Time of Note Date/Time of Note DATE: 06/15/17 TIME: 16:51 Assessment/Plan Assessment/Plan Chief Complaint/Hosp Course Sepsis==>resolving Polymicrobial UTI with bacteremia Sacral wounds==> chronic ?OM Paraplegia, s/p C spine injury N bladder CAD/PPM Abx: Vanco, Zosyn Diflucan Plan: Clinically stable, continue abx, repeat bld cx, consider surgical eval Problems: Consultation Date/Type/Reason Admit Date/Time Jun 10, 2017 at 20:57 Type of Consultation: ID Referring Provider: MELISSA RODRIGUEZ MD Psychological: other (mildly depressed affect) Social History Alcohol Use: other (Previously heavy ethanol abuse) Smoking Status: Unknown if ever smoked Drug Use: none Exam/Review of Systems Vital Signs Vitals Vital Signs Date Time Temp Pulse Resp B/P Pulse Ox O2 Delivery O2 Flow Rate FiO2 06/15/17 16:37 93 06/15/17 15:35 98.0 18 126/87 96 06/14/17 12:34 21 06/13/17 21:00 Room Air Intake and Output 06/14/17 06/14/17 06/15/17 15:00 23:00 07:00 Intake Total 100 ml 2100 ml 100 ml Output Total 400 ml 1050 ml Balance 100 ml 1700 ml -950 ml Results Result Diagram: 06/15/17 0700 06/15/17 0700 Results 24 hrs Laboratory Tests Test 06/15/17 07:00 White Blood Count 16.3 H Red Blood Count 3.67 L Hemoglobin 9.4 L Hematocrit 29.2 L Mean Corpuscular Volume 79.6 L Mean Corpuscular Hemoglobin 25.6 L Mean Corpuscular Hemoglobin Concent 32.2 Red Cell Distribution Width 22.8 H Platelet Count 249 Mean Platelet Volume 9.2 Neutrophils % 68.8 Lymphocytes % 18.8 Monocytes % 6.5 Eosinophils % 0.9 Basophils % 0.6 Nucleated Red Blood Cells % 0.0 Neutrophils # (Manual) 11.2 H Lymphocytes # 3.1 H Monocytes # 1.1 H Eosinophils # 0.1 Basophils # 0.1 Nucleated Red Blood Cells # 0.0 Sodium Level 140 Potassium Level 3.6 Chloride Level 108 Carbon Dioxide Level 28 Anion Gap 8 Blood Urea Nitrogen 11 Creatinine 0.39 L Glucose Level 97 Calcium Level 6.6 L Phosphorus Level 3.5 Magnesium Level 2.0 # Medications Medications Current Medications Piperacillin Sod/ Tazobactam Sod (Zosyn 3.375gm/ 100 ml (Pmx)) 100 ml @ 200 mls /hr Q6 IVPB Last administered on 06/15/17 13:44; Admin Dose 200 MLS/HR; Start 06/11/17 at 06:00 Miscellaneous Information This patient pereyra... PRN PRN XX WOUND CARE; Start at 06:00 Potassium Chloride 40 meq/ Sodium Chloride 1,020 ml @ 80 mls/hr [id number] IV Last administered on 06/15/17 08:48; Admin Dose 80 MLS/HR; Start 06/11/17 at 15: 00 Ferric Sodium Gluconate Complex/ Sodium Chloride (Ferrlecit/NS) 110 ml @ 100 mls/hr Q24H IVPB Last administered on 06/14/17 18:33; Admin Dose 100 MLS/HR; Start 06/13/17 at 18:30; Stop 06/15/17 at 19:35 Polyethylene Glycol (Miralax) 17 gm DAILY PO Last administered on 06/14/17 08: 45; Admin Dose 17 GM; Start 06/13/17 at 19:00 Nystatin (Nystatin Powder) 1 applic BID TOP Last administered on 06/15/17 09:00 ; Admin Dose 1 APPLIC; Start 06/14/17 at 21:00 Sodium Hypochlorite (Dakin'S (1/4 Strength)) 1 applic BID IRR Last administered on 06/15/17 09:00; Admin Dose 1 APPLIC; Start 06/14/17 at 21:00 Pantoprazole 40 mg 40 mg DAILY@06 PO Last administered on 06/15/17 06:19; Admin Dose 40 MG; Start 06/15/17 at 06:00 Fluconazole 100 ml @ 100 mls/hr Q24H IVPB Last administered on 06/15/17 11:55 ; Admin Dose 100 MLS/HR; Start 06/15/17 at 10:00 Vancomycin HCl (Vancocin) 250 ml @ 125 mls/hr Q12H IVPB ; Start 06/15/17 at 23: 00 FANNIE HONG NP Jun 15, 2017 16:56
[2017-06-15] MEDS: SOD FERRIC GLUC COMPLX 125 MG in SOD CHLORIDE 0.9% 100 ML IVPB SCH (18:23)
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
[2017-06-15] MEDS: VANCOMYCIN 1 GM in NS 250 ML IVPB SCH (22:26)
[2017-06-16] VITALS (12 sets, daily range): BP systolic 100–143; BP diastolic 62–91; PULSE 83–96; RESP 16–20
[2017-06-16] MEDS: PIPER-TAZO 3.375 GM IV (PMX) 100 ML IVPB SCH ×4 (01:24→16:48)
[2017-06-16] MEDS: VANCOMYCIN 1 GM in NS 250 ML IVPB SCH ×2 (01:24→13:18)
[2017-06-16] MEDS: PANTOPRAZOLE (EC) 40 MG TAB PO SCH (06:27)
[2017-06-16] MEDS: SODIUM HYPOCHLORITE 0.125% 473 ML BTL IRR SCH ×2 (09:00→21:32)
[2017-06-16] MEDS: NYSTATIN 30 GM POWDER BTL TOP SCH ×2 (09:00→21:32)
[2017-06-16] MEDS: POLYETHYLENE GLYCOL 17 GM PACKET PO SCH (10:42)
[2017-06-16] MEDS: POTASSIUM CHLORIDE 40 MEQ in SOD CHLORIDE 0.9% 1,000 ML IV SCH ×2 (10:43→21:32)
[2017-06-16] MEDS: FLUCONAZOLE 200 MG/NS (PMX) 100 ML IVPB SCH (10:46)
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
--- NOTE | 2017-06-16 18:35 | PN ---
DATE: 06/16/2017 SUBJECTIVE DATA: No acute events overnight. The patient is awake, looks comfortable. VITAL SIGNS: He is afebrile. T-max 99.8, current 98.7, pulse 99, respirations 18, blood pressure 111/74, saturation 97 percent. LABORATORY DATA: No labs this morning. MICROBIOLOGY: Blood culture on admission grew E. coli. Urine culture grew Escherichia coli and Proteus mirabilis. Wound culture growing Pseudomonas, strep, Keyla albicans. ANTIMICROBIALS: The patient is on vancomycin, fluconazole, and Zosyn. PHYSICAL EXAMINATION: GENERAL: This is a chronically ill appearing, middle-aged man, who is in no distress. HEENT: Head atraumatic, normocephalic. Sclerae anicteric. Buccal mucosa dry. NECK: Supple. CHEST: Rise symmetrical. Breath sounds diminished at bases. HEART: S1, S2. ABDOMEN: Soft, bowel sounds present. EXTREMITIES: Wasted without cyanosis. ASSESSMENT: 1. Sepsis, status post shock. 2. Polymicrobial urinary tract infection with bacteremia. 3. Chronic sacral wounds. Rule out osteomyelitis with culture growing multiple bacteria. 4. Neurogenic bladder. 5. Paraplegia, status post cervical spine injury. 6. Healthcare associated pneumonia. 7. Coronary artery disease, history of permanent pacemaker. PLAN: The patient remains stable. Suprapubic catheter was changed by urology, he is on appropriate antimicrobials. Repeat cultures are pending. Consider surgical evaluation for possible wound debridement. Follow chest x-ray. Monitor for clinical improvement. Dictated By: Sean Cardoso NP /steve/kayleigh /Document#: [id number]
[2017-06-17] VITALS (11 sets, daily range): BP systolic 8–126; BP diastolic 55–90; PULSE 86–101; RESP 16–20
[2017-06-17] MEDS: PIPER-TAZO 3.375 GM IV (PMX) 100 ML IVPB SCH ×4 (00:38→18:42)
[2017-06-17] MEDS ORDERED: VANCOMYCIN 1 GM in NS 250 ML IVPB SCH (01:00)
[2017-06-17] MEDS: PANTOPRAZOLE (EC) 40 MG TAB PO SCH (05:00)
[2017-06-17 06:59] LABS: ABNORMAL IP MESSAGE 1; BASOPHIL # 0.1 10^3/ul (0.0-0.1); BASOPHILS % 0.6 % (0.0-2.0); EOSINOPHILS # 0.1 10^3/ul (0.0-0.5); EOSINOPHILS % 0.7 % (0.0-7.0); HEMATOCRIT 32.4 % (42.0-52.0); LYMPHOCYTES # 2.8 10^3/ul (0.8-2.9); LYMPHOCYTES % 22.9 % (15.0-51.0); MEAN CORPUSCULAR HEMOGLOBIN 24.9 pg (29.0-33.0); MEAN CORPUSCULAR HGB CONC 30.9 g/dl (32.0-37.0); MEAN CORPUSCULAR VOLUME 80.8 fl (82.0-101.0); MEAN PLATELET VOLUME 9.8 fl (7.4-10.4); MONOCYTE # 0.7 10^3/ul (0.3-0.9); MONOCYTES % 5.4 % (0.0-11.0); NEUTROPHILS % 68.5 % (39.0-77.0); PLATELET COUNT 304 10^3/UL (140-415); POSITIVE DIFF @See below; RED BLOOD COUNT 4.01 10^6/ul (4.70-6.10); RED CELL DISTRIBUTION WIDTH 23.9 % (11.5-14.5); WHITE BLOOD COUNT 12.1 10^3/ul (4.8-10.8)
[2017-06-17 07:21] LABS: ALBUMIN 2.4 g/dl (3.3-4.9); CALCIUM 7.3 mg/dl (8.4-10.2); CREATININE 0.39 mg/dl (0.61-1.24); MAGNESIUM 1.2 mg/dl (1.7-2.5); PHOSPHORUS 3.6 mg/dl (2.5-4.9); POTASSIUM 3.1 mmol/L (3.5-5.1)
[2017-06-17] MEDS: POLYETHYLENE GLYCOL 17 GM PACKET PO SCH (09:00)
[2017-06-17] MEDS: NYSTATIN 30 GM POWDER BTL TOP SCH ×2 (09:46→21:47)
[2017-06-17] MEDS: SODIUM HYPOCHLORITE 0.125% 473 ML BTL IRR SCH ×2 (09:46→21:48)
[2017-06-17] MEDS: POTASSIUM CHLORIDE 40 MEQ in SOD CHLORIDE 0.9% 1,000 ML IV SCH (09:47)
[2017-06-17] MEDS: FLUCONAZOLE 200 MG/NS (PMX) 100 ML IVPB SCH (09:48)
--- NOTE | 2017-06-17 11:32 | PN ---
Date/Time of Note Date/Time of Note DATE: 06/17/17 TIME: 11:32 Assessment/Plan VTE Prophylaxis VTE Prophylaxis Intervention: heparin Lines/Catheters IV Catheter Type (from Nrs): Peripheral IV Central line still needed: Yes Urinary Cath still in place: Yes Reason Cath still needed: skin wounds contaminated by urine Assessment/Plan Assessment/Plan 1. s/p Septic Shock 2/2 UTI and right hip/sacral decub ulcer/?chronic osteo- resolving - Blood culture with E-coli and urine cx with E-coli and proteus. Now sacral wound cx showing GNR, strep Agalactiae and kenan - WBC continues to trend downward - ID on board and recommendations appreciated. continue current antibiotics - repeat blood cultures from 06/15 still pending but no growth to date 2. Recurrent UTI with chronic neurogenic bladder s/p suprapubic cath placement - Urology on board and recommendations appreciated. Does not believe leakage is from the catheter itself but rather colon pressing on bladder - Will need catheter changed every 4 weeks to avoid infection 3. Chronic paraplegia post C-spine injury 4. Hypokalemia - 3.1, replaced 5. Anemia of chronic disease - stable. 5. Hyponatremia: resolved 6. Severe distal colonic and rectal distension concerning for rectal stricture and a colonic ileus which may be neurogenic in origin : no intervention required per GI. patient said no difficulty passing gas and with bowel movement. 7. Severe atrophy of the pelvis muscles with probable chronic osteomyelitis of the right proximal femur and hip related to decubitus ulcer. 8. Pacemaker Subjective 24 Hr Interval Summary Free Text/Dictation Patient doing well and eager to go home. Understands plans for waiting for final blood cultures before being discharged back to [place]. States they do IV antibiotic therapy at his [facility]. Denies any fevers, chills, nausea, vomiting, shortness of breath, or chest pain. Exam/Review of Systems Vital Signs Vitals Vital Signs Date Time Temp Pulse Resp B/P Pulse Ox O2 Delivery O2 Flow Rate FiO2 06/17/17 08:01 86 06/17/17 07:41 98.3 18 95/55 93 06/14/17 12:34 21 06/13/17 21:00 Room Air Intake and Output 06/16/17 06/16/17 06/17/17 15:00 23:00 07:00 Intake Total 100 ml 680 ml 560 ml Output Total 1350 ml 1250 ml Balance 100 ml -670 ml -690 ml Exam General: NAD, pleasant and cooperative. awake and alert HEENT: atraumatic, normocephalic, EOMI, PERRL Respiratory: clear to auscultation, normal air movement Cardiovascular: regular rate and rhythm, no murmurs Gastrointestinal: distended, nontender, firm Extremities: pulses intact, no cyanosis, clubbing, or edema, paraplegia with contractures Results Result Diagram: 06/17/1761706/17/17617 Results 24 hrs Laboratory Tests Test 06/17/17 00:39 06/17/17 06:18 Vancomycin Level Trough 9.5 L White Blood Count 12.1 #H Red Blood Count 4.01 L Hemoglobin 10.0 L Hematocrit 32.4 L Mean Corpuscular Volume 80.8 L Mean Corpuscular Hemoglobin 24.9 L Mean Corpuscular Hemoglobin Concent 30.9 L Red Cell Distribution Width 23.9 H Platelet Count 304 # Mean Platelet Volume 9.8 Neutrophils % 68.5 Lymphocytes % 22.9 Monocytes % 5.4 Eosinophils % 0.7 Basophils % 0.6 Nucleated Red Blood Cells % 0.0 Neutrophils # (Manual) 8.3 H Lymphocytes # 2.8 Monocytes # 0.7 Eosinophils # 0.1 Basophils # 0.1 Nucleated Red Blood Cells # 0.0 Sodium Level 140 Potassium Level 3.1 L Chloride Level 108 Carbon Dioxide Level 28 Anion Gap 7 L Blood Urea Nitrogen 13 Creatinine 0.39 L Glucose Level 115 Calcium Level 7.3 L Phosphorus Level 3.6 Magnesium Level 1.2 L Albumin 2.4 L Medications Medications Current Medications Piperacillin Sod/ Tazobactam Sod (Zosyn 3.375gm/ 100 ml (Pmx)) 100 ml @ 200 mls /hr Q6 IVPB Last administered on 06/17/17 05:00; Admin Dose 200 MLS/HR; Start 06/11/17 at 06:00 Miscellaneous Information (Pending Santyl Order For Wound Care) This patient pereyra... PRN PRN XX WOUND CARE; Start 06/11/17 at 06:00 Polyethylene Glycol (Miralax) 17 gm DAILY PO Last administered on 06/16/17 10: 42; Admin Dose 17 GM; Start 06/13/17 at 19:00 Nystatin (Nystatin Powder) 1 applic BID TOP Last administered on 06/17/17 09: 46; Admin Dose 1 APPLIC; Start 06/14/17 at 21:00 Sodium Hypochlorite (Dakin'S (1/4 Strength)) 1 applic BID IRR Last administered on 06/17/17 09:46; Admin Dose 1 APPLIC; Start 06/14/17 at 21:00 Pantoprazole 40 mg 40 mg DAILY@06 PO Last administered on 06/17/17 05:00; Admin Dose 40 MG; Start 06/15/17 at 06:00 Fluconazole (Diflucan 200 Mg/ NS (Pmx)) 100 ml @ 100 mls/hr Q24H IVPB Last administered on 06/17/17 09:48; Admin Dose 100 MLS/HR; Start 06/15/17 at 10:00 Potassium Chloride 40 meq 40 meq BID PO ; Start 06/17/17 at 11:00; Stop at 10:59 Vancomycin HCl/ Sodium Chloride (Vancocin/NS) 250 ml @ 83.333 mls/ hr Q12H IVPB ; Start 06/17/17 at 14:00 MILADIS MADDEN MD Jun 17, 2017 11:32
[2017-06-17] MEDS: POTASSIUM CHLORIDE (SR) 20 MEQ TAB PO SCH ×2 (12:23→21:47)
[2017-06-17] MEDS: VANCOMYCIN 1.25 GM in SOD CHLORIDE 0.9% 250 ML IVPB SCH (15:45)
--- NOTE | 2017-06-17 21:33 | PN ---
DATE: 06/17/2017 SUBJECTIVE DATA: No acute events overnight per R.N. report. The patient is sleeping, looks comfortable. No fevers. Temperature 97.7, pulse 95, respirations 16, blood pressure 126/90. Saturation 98 percent. LABORATORY AND DIAGNOSTIC DATA: WBC 12.1. Hemoglobin and hematocrit 10 and 32.4, platelets 304. No shift, no bands. BUN 13, creatinine 0.39. MICROBIOLOGY: Blood culture on admission grew E coli. Urine culture grew E coli, Proteus mirabilis. Sacral wound culture growing Pseudomonas strep and Keyla albicans. Repeat blood cultures negative. ANTIMICROBIALS: Vancomycin, fluconazole, Zosyn, indwelling suprapubic catheter. PHYSICAL EXAMINATION: GENERAL: Fragile, chronically ill appearing, middle-aged man, who is in no distress. HEENT: Head atraumatic, normocephalic. Sclerae anicteric. Buccal mucosa dry. NECK: Neck is supple. CHEST: Chest rise symmetrical. Breath sounds diminished at the bases. HEART: S1, S2. ABDOMEN: Soft, bowel sounds present. EXTREMITIES: Extremities are wasted, without cyanosis. SKIN: Skin is with unstageable wounds on the buttocks. ASSESSMENT: 1. Resolving sepsis status post shock. 2. Polymicrobial urinary tract infection with bacteremia, repeat blood cultures negative. 3. Chronic wounds with cultures growing multiple bacteria. 4. Neurogenic bladder status post suprapubic catheter. 5. Paraplegia. 6. Pneumonia. 7. History of permanent pacemaker. PLAN: The patient remains stable. WBC tracing down. Repeat blood cultures negative. Continue on current antibiotics. Follow recommendations of consultants. Dictated By: Sean Cardoso NP /steve/ /Document#: [id number]
[2017-06-18] VITALS (12 sets, daily range): BP systolic 85–123; BP diastolic 52–72; PULSE 69–102; RESP 16–20
[2017-06-18] MEDS: PIPER-TAZO 3.375 GM IV (PMX) 100 ML IVPB SCH ×3 (00:22→11:46)
[2017-06-18] MEDS: VANCOMYCIN 1.25 GM in SOD CHLORIDE 0.9% 250 ML IVPB SCH ×2 (01:30→13:10)
[2017-06-18] MEDS: PANTOPRAZOLE (EC) 40 MG TAB PO SCH (05:55)
[2017-06-18 07:51] LABS: ABNORMAL IP MESSAGE 1; BASOPHIL # 0.1 10^3/ul (0.0-0.1); BASOPHILS % 0.7 % (0.0-2.0); EOSINOPHILS # 0.1 10^3/ul (0.0-0.5); EOSINOPHILS % 0.9 % (0.0-7.0); HEMOGLOBIN 9.5 g/dl (14.0-18.0); LYMPHOCYTES # 2.9 10^3/ul (0.8-2.9); LYMPHOCYTES % 24.7 % (15.0-51.0); MEAN CORPUSCULAR HEMOGLOBIN 24.4 pg (29.0-33.0); MEAN CORPUSCULAR HGB CONC 29.7 g/dl (32.0-37.0); MEAN CORPUSCULAR VOLUME 82.3 fl (82.0-101.0); MEAN PLATELET VOLUME 9.3 fl (7.4-10.4); MONOCYTE # 0.7 10^3/ul (0.3-0.9); MONOCYTES % 5.8 % (0.0-11.0); NEUTROPHILS % 66.9 % (39.0-77.0); PLATELET COUNT 307 10^3/UL (140-415); POSITIVE DIFF @See below; RED BLOOD COUNT 3.89 10^6/ul (4.70-6.10); RED CELL DISTRIBUTION WIDTH 24.5 % (11.5-14.5); WHITE BLOOD COUNT 11.6 10^3/ul (4.8-10.8)
[2017-06-18 08:22] LABS: ALBUMIN 2.5 g/dl (3.3-4.9); ALBUMIN/GLOBULIN RATIO 0.54; BILIRUBIN,INDIRECT 0.2 mg/dl (0-1.1); BILIRUBIN,TOTAL 0.2 mg/dl (0.2-1.3); CREATININE 0.43 mg/dl (0.61-1.24); MAGNESIUM 1.3 mg/dl (1.7-2.5); POTASSIUM 4.1 mmol/L (3.5-5.1); TOTAL PROTEIN 7.1 g/dl (6.1-8.1)
[2017-06-18] MEDS: POLYETHYLENE GLYCOL 17 GM PACKET PO SCH (09:00)
[2017-06-18] MEDS: POTASSIUM CHLORIDE (SR) 20 MEQ TAB PO SCH (09:32)
[2017-06-18] MEDS: FLUCONAZOLE 200 MG/NS (PMX) 100 ML IVPB SCH (09:33)
[2017-06-18] MEDS: SODIUM HYPOCHLORITE 0.125% 473 ML BTL IRR SCH (09:38)
[2017-06-18] MEDS: NYSTATIN 30 GM POWDER BTL TOP SCH (09:38)
--- NOTE | 2017-06-18 14:18 | PDOCDIS ---
Discharge Instructions CONDITION Patient Condition: Stable HOME CARE INSTRUCTIONS: Special Diet: 2Gm GM Mckinnon Jun 18, 2017 14:18
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
[2017-06-18] MEDS ORDERED: MAGNESIUM SULFATE 3 GM in SOD CHLORIDE 0.9% 100 ML IVPB ONE (15:30)
[2017-06-18] MEDS ORDERED: CEFEPIME 1GM/50 ML (PMX) 50 ML IVPB SCH (21:00)
--- NOTE | 2017-06-18 21:21 | PN ---
DATE: 06/18/2017 SUBJECTIVE DATA: Patient is awake, anxious to go back to the facility. He is in no distress, afebrile. LABORATORY AND DIAGNOSTIC DATA: WBC 11.6, platelets 307, no shift, no bands. BUN 12 and creatinine 0.43. MICROBIOLOGY: Blood culture on admission grew E coli. Urine culture grew E coli and Proteus mirabilis. Repeat blood cultures negative. Sacral wound culture grew Pseudomonas, Strep agalactiae and Keyla albicans. OBJECTIVE DATA: GENERAL: This is a chronically ill-appearing, middle-aged man, who is in no distress. HEENT: Head atraumatic, normocephalic. Sclerae anicteric. Buccal mucosa dry. NECK: Supple. CHEST: Rise symmetrical. Breath sounds diminished at the bases. HEART: S1, S2. ABDOMEN: Soft, bowel sounds present. EXTREMITIES: No cyanosis, wasted, contractured. ASSESSMENT: 1. Status post septic shock. 2. Polymicrobial urinary tract infection, with bacteremia. 3. Chronic wounds, with culture growing multidrug-resistant organisms. 4. Quadriplegia. 5. Chronic suprapubic catheter. 6. Pneumonia, resolving. 7. History of permanent pacemaker. PLAN: Patient remains stable. Repeat blood culture negative. We are going to change antibiotics to cefepime to complete another 7 days, pending discharge planning. Dictated By: Sean Cardoso NP /steve/tanya /Document#: [id number]
== END 2017-06-18 20:30 | DRG 871 ==
LOC: E/R 10:48 → ICU 20:57 → TEL 06-13 23:40
PROVIDERS: ADMIT Internal Medicine; ATTEND Internal Medicine
PROC: 02HV33Z Insertion of Infusion Device into Superior Vena Cava, Percutaneous Approach (ICD-10-PCS; principal; 2017-06-10)
PROC: 3E063XZ Introduction of Vasopressor into Central Artery, Percutaneous Approach (ICD-10-PCS; 2017-06-10)
PROC: 30233N1 Transfusion of Nonautologous Red Blood Cells into Peripheral Vein, Percutaneous Approach (ICD-10-PCS; 2017-06-11)
DX: A41.51 Sepsis due to Escherichia coli [E. coli] (principal); R65.21 Severe sepsis with septic shock; L89.154 Pressure ulcer of sacral region, stage 4; E87.1 Hypo-osmolality and hyponatremia; K62.4 Stenosis of anus and rectum; K56.7 Ileus, unspecified; E83.42 Hypomagnesemia; L89.224 Pressure ulcer of left hip, stage 4; L89.214 Pressure ulcer of right hip, stage 4; N39.0 Urinary tract infection, site not specified; M86.8X6 Other osteomyelitis, lower leg; N31.9 Neuromuscular dysfunction of bladder, unspecified; A40.1 Sepsis due to streptococcus, group B; B37.7 Candidal sepsis; A41.50 Gram-negative sepsis, unspecified; Z95.0 Presence of cardiac pacemaker; F31.9 Bipolar disorder, unspecified; T14.90 Injury, unspecified; V89.2XXS Person injured in unspecified motor-vehicle accident, traffic, sequela; D63.8 Anemia in other chronic diseases classified elsewhere; E87.6 Hypokalemia; M62.50 Muscle wasting and atrophy, not elsewhere classified, unspecified site; Z87.440 Personal history of urinary (tract) infections; I25.10 Atherosclerotic heart disease of native coronary artery without angina pectoris
CPT/HCPCS: 36430; 36600; 71010; 74176; 80048; 80053; 80069; 80202; 81001; 82140; 82565; 82728; 82803; 83540; 83605; 83735; 84100; 84132; 84484; 84520; 85025; 85610; 85730; 86850; 86900; 86901; 86920; 87040; 87070; 87081; 87086; 92526; 92610; 93005; 94640; 94664; J1940; C9113; J0610; J0692; J2543; J2916; J3370; J3475; J3480; J7030; J7040; J7050; J7060; P9016

== ENCOUNTER 2018-01-29 15:09 | Inpatient (IN) | END 2018-01-30 18:53 | DRG 259 ==